=== PATIENT | female | born 1975 | race Two or more races ===

== ENCOUNTER 2018-01-18 11:06 | Emergency (ER) | payer OTHER ==
[~2018-01-18] VITALS: Ht 157.5 cm; Wt 63.0 kg
[~2018-01-18 11:06] MED LIST: CEFTIN500 MG PO; INTESTINEX1 CA1 PO; KETO10TA2 PO; MEROPENEM IV; TPN IV
== END 2018-01-18 19:09 | disposition home or self-care (01) ==
LOC: ER 11:06
DX: K59.09 Other constipation (principal); R10.13 Epigastric pain

== ENCOUNTER 2023-05-08 21:04 | Emergency (ER) | payer OTHER ==
[~2023-05-08] VITALS: Ht 157.5 cm; Wt 68.0 kg
[2023-05-08] MEDS ORDERED: VALTREX1000 MG PO (21:17)
[2023-05-08 23:12] LABS: HEMATOCRIT 38.8 % (36.0-45.00); HEMOGLOBIN 13.1 g/dL (12.0-15.00); MEAN CORPUSCULAR HEMOGLOBIN 29.6 pg (27.00-32.0); MEAN CORPUSCULAR HGB CONC 33.7 g/dl (32.0-36.0); PLATELET COUNT 228 K/uL (150-450); RED BLOOD COUNT 4.41 M/uL (4.00-6.00); RED CELL DISTRIBUTION WIDTH 13.5 % (11.5-14.5)
[2023-05-08 23:12] LABS: PH,URINE 5.5 (5.0-8.0); URINE APPEARANCE Clear; URINE BILIRRUBIN Negative (NEGATIVE); URINE BLOOD Moderate; URINE COLOR Yellow; URINE GLUCOSE Negative (NEGATIVE); URINE LEUKOCYTE Negative; URINE NITRATE Negative; URINE PROTEIN Negative (NEGATIVE); URINE UROBILINOGEN 0.2 E.U./dl
[2023-05-08 23:17] LABS: URINE BACTERIA 222.9 uL (0.0-1933); URINE EPITHELIAL CELLS 13.2 uL (0.0-38.8); URINE RBC 35.9 uL (0.0-20.8); URINE WBC 3.7 uL (0.0-23.2)
[2023-05-08 23:48] LABS: INR 0.99; PARTIAL THROMBOPLASTIN TIME 28.2 SECONDS (22.0-34.0); PROTHROMBIN TIME 10.4 SECONDS (9.0-11.5)
[2023-05-08 23:54] LABS: ALBUMIN 3.8 gm/dL (3.4-5.0); BILIRUBIN TOTAL 0.46 mg/dL (0.3-1.2); CALCIUM 8.6 mg/dL (8.5-10.1); CREATININE SERUM 0.92 mg/dL (0.55-1.02); GFR 66.01; GLOBULINA 4.2 G/DL (2.4-3.5); POTASSIUM 3.79 mEq/L (3.5-5.1)
== END 2023-05-09 02:42 | disposition home or self-care (01) ==
LOC: ER 21:04
PROVIDERS: General Practice
DX: N94.0 Mittelschmerz (principal)